=== PATIENT | female | born 1985 | race Caucasian/White ===

== ENCOUNTER 2017-02-14 00:49 | Emergency (ER) | payer OTHER ==
[~2017-02-14] VITALS: Ht 165.1 cm; Wt 84.1 kg
[~2017-02-14 00:49] MED LIST: NOHOMEMEDS
[2017-02-14 01:51] LABS: HEMATOCRIT 35.2 % (36.0-46.0); MCH 29.3 PG (29.0-34.0); MCHC 32.4 G/DL (30.0-36.0); MCV 90.5 FL (83-99); MEAN PLAT.VOLUME 10.6 uM^3 (9.5-12.4); PLATELET COUNT 246 K/uL (156-360); RBC DIS.WIDTH-CV 11.9 % (11.8-14.6); RED BLOOD COUNT 3.89 M/uL (3.80-5.20); WHITE BLOOD COUNT 6.5 K/uL (4.1-10.2)
[2017-02-14 02:05] LABS: CHLORIDE 109 mEq/L (99-109); SODIUM 141 mEq/L (136-147)
[2017-02-14 02:07] LABS: GLUCOSE 102 mg/dL (70-99)
[2017-02-14 02:09] LABS: ANION GAP 10 MEQ/L (2-14)
[2017-02-14 02:11] LABS: GFR ESTIMATE (CALCULATED) > 59 mL/min/; TROP-I INTERPRETATION NEGATIVE; TROPONIN-I < 0.01 ng/mL (0.0-0.30)
[2017-02-14 02:12] LABS: UREA NITROGEN (BUN) 12 mg/dL (9-23)
[2017-02-14 02:24] LABS: QUANTITATIVE HCG < 4.0 MIU/ML
[2017-02-14] MEDS ORDERED: NEXIUM40 MG PO (02:35)
[2017-02-14 03:01] VITALS: BP 136/92
== END 2017-02-14 03:02 | disposition home or self-care (01) ==
LOC: EME 00:49
PROVIDERS: Nurse Practitioner Family
DX: R07.89 Other chest pain (principal); K21.9 Gastro-esophageal reflux disease without esophagitis; D64.9 Anemia, unspecified; Z87.891 Personal history of nicotine dependence
CPT/HCPCS: 71020; 80048; 84484; 84702; 85027; 93005; 99281; 99284